=== PATIENT | male | born 1985 ===

== ENCOUNTER 2019-09-23 20:32 | Emergency (ER) | payer OTHER ==
--- NOTE | 2019-09-23 21:19 | UC ---
Back Pain HPI - HPI Summary HPI Summary: PATIENT'S BED IS TOO SMALL FOR HIM AND HIS FIANCE. THEY'RE CURRENTLY WAITING FOR A NEW BED TO BE DELIVERED. A RESULT HE SOMETIMES SLEEPS ON THE FLOOR. HE DID THIS A FEW NIGHTS AGO AND AFTER THAT DEVELOPED LEFT-SIDED LOW BACK, HIP AND LEG PAIN EXTENDING DOWN HIS HAMSTRINGS. HE DENIES ANY NUMBNESS OR TINGLING. NO SADDLE ANESTHESIA. NO LOSS OF BOWEL OR BLADDER CONTROL. NO TRAUMA OR INJURY. HAS NOT TRIED ANY OTC ANALGESICS. - History of Current Complaint Chief Complaint: UCLowerExtremity Stated Complaint: LEG AND BACK PAIN Time Seen by Provider: 09/23/19 20:45 Hx Obtained From: Patient Onset/Duration: Sudden Onset, Lasting Days, Still Present Timing: Constant Severity Initially: Moderate Severity Currently: Moderate Pain Intensity: 7 Pain Scale Used: 0-10 Numeric Character: Sharp Aggravating Factor(s): Nothing Alleviating Factor(s): Position Associated Signs And Symptoms: Positive: Negative - Allergies/Home Medications Allergies/Adverse Reactions: Allergies Allergy/AdvReac Type Severity Reaction Status Date / Time No Known Allergies Allergy Verified 09/23/19 20:53 Home Medications: Home Medications Sertraline* [Zoloft*] 125 mg PO DAILY 09/23/19 [History Confirmed 09/23/19] PMH/Surg Hx/FS Hx/Imm Hx Previously Healthy: Yes - Surgical History Surgical History: None - Family History Known Family History: Positive: Non-Contributory - Social History Alcohol Use: None Substance Use Type: None Smoking Status (MU): Never Smoked Tobacco Review of Systems All Other Systems Reviewed And Are Negative: Yes Constitutional: Positive: Negative Skin: Positive: Negative Respiratory: Positive: Negative Cardiovascular: Positive: Negative Gastrointestinal: Positive: Negative Musculoskeletal: Positive: Myalgia. Negative: Decreased ROM, Edema Neurological: Positive: Negative Physical Exam Triage Information Reviewed: Yes Appearance: Well-Appearing, No Pain Distress, Well-Nourished Vital Signs: Initial Vital Signs Temp 98.7 F 09/23/19 20:47 Pulse 91 09/23/19 20:47 Resp 18 09/23/19 20:47 BP 136/88 09/23/19 20:47 Pulse Ox 97 09/23/19 20:47 Laboratory Tests 09/23/19 21:25 POC Urine Color Yellow POC Urine Clarity Clear POC Urine pH 5.5 POC Ur Specif [place] >= 1.030 POC Urine Protein Negative POC Ur Glucose (UA) Negative POC Urine Ketones Negative POC Urine Blood Negative POC Urine Nitrite Negative POC Urine Bilirubin Negative POC Urine Urobilinogen 0.2 POC U Leukocyte Esteras Negative Vital Signs Reviewed: Yes Eyes: Positive: Conjunctiva Clear ENT: Positive: Hearing grossly normal Neck: Positive: Supple Respiratory: Positive: No respiratory distress, No accessory muscle use Cardiovascular: Positive: Pulses Normal Abdomen Description: Positive: Soft Musculoskeletal: Positive: ROM Intact, No Edema Neurological: Positive: Alert, Muscle Tone Normal, Other: - NEG STRAIGHT LEG RAISE Psychological: Positive: Age Appropriate Behavior Skin: Negative: Rashes Back Pain Course/Dx - Course Course Of Treatment: PATIENT'S SYMPTOMS STARTED AFTER SLEEPING ON THE FLOOR OVERNIGHT. HE LIKELY HAS MUSCULOSKELETAL DISCOMFORT. HE HAS NOT TRIED ANY OTC ANALGESICS. ADVISED 600 MG IBUPROFEN EVERY 6 HOURS NEEDED. WILL PRESCRIBE A SHORT COURSE OF FLEXERIL FOR HIM TO USE NEEDED WELL. DISCUSSED VERY LOW POSSIBILITY OF RHABDOMYOLYSIS. URINE DIP WAS NORMAL. PT DENIES WEAKNESS. ALSO DISCUSSED LOW POSSIBILITY OF BLOOD CLOT. PATIENT IS VERY CONCERNED ABOUT HIS DISCOMFORT. HE IS TO PRESENT TO THE ER WITHOUT FAIL IF HIS SYMPTOMS CHANGE OR WORSEN. - Differential Dx/Diagnosis Provider Diagnosis: Left low back pain Discharge ED - Sign-Out/Discharge Documenting (check all that apply): Patient Departure All imaging exams completed and their final reports reviewed: No Studies - Discharge Plan Condition: Stable Disposition: HOME Prescriptions: Cyclobenzaprine TAB* [Flexeril TAB*] 10 mg PO BID PRN #30 tab PRN Reason: Pain Patient Education Materials: Musculoskeletal Pain (ED) Referrals: [facility] [Outside] - If Needed Additional Instructions: YOUR SYMPTOMS ARE MOST CONSISTENT WITH MUSCULOSKELETAL DISCOMFORT. URINE DIP WAS NORMAL WHICH POINTS AWAY FROM SOMETHING LIKE RHABDOMYOLYSIS. TAKE IBUPROFEN 600 MG EVERY 6 HOURS NEEDED FOR DISCOMFORT. FLEXERIL BEFORE BED. REST, STRETCH. BE SURE TO GO THROUGH SLOW RANGE OF MOTION AND STRETCHING EXERCISES DAILY YOU ARE ABLE TO PREVENT STIFFENING UP AND MAKING THE DISCOMFORT WORSE. GO TO ED WITHOUT FAIL IF YOU DEVELOP WORSENING PAIN, SHORTNESS OF BREATH, CHEST PAIN, NAUSEA, SWEATS, DIZZINESS OR ANY OTHER CONCERNING SYMPTOMS. CALL THE NUMBER BELOW FOR ASSISTANCE IN ESTABLISHING WITH A PCP An additional resource available to assist in finding the appropriate physician for your health care needs is [facility] ([facility]). You may contact them by calling [phone]. - Billing Disposition and Condition Condition: STABLE Disposition: Home
[2019-09-23] MEDS ORDERED: Cyclobenzaprine TAB* 10 MG PO ONE (21:39)
== END 2019-09-23 22:00 | disposition home or self-care (01) ==
LOC: EDBD 20:32 → UCEAST 20:32
DX: M54.5 Low back pain (principal); M79.606 Pain in leg, unspecified; M79.10 Myalgia, unspecified site
CPT/HCPCS: 81003; 99202; A9270-GY; G0463